=== PATIENT | female | born 1995 | race Hispanic/Latino ===

== ENCOUNTER 2022-09-09 21:14 | Emergency (ER) | payer OTHER ==
[~2022-09-09] VITALS: Ht 170.2 cm; Wt 50.8 kg
[2022-09-09] MEDS ORDERED: ONDANSETRON HCL INJ 2MG/ML 2ML 2 MG/ML VIAL IV STA (21:22)
[2022-09-09 21:34] LABS: BASOPHILS % 0.2 % (0.0-1.0); EOSINOPHILS # (AUTO) 0.1 (0.0-0.4); EOSINOPHILS % 0.6 % (0.0-6.0); HEMATOCRIT 36.5 % (34.2-44.1); HEMOGLOBIN 12.7 g/dL (12.0-16.0); MEAN CORPUSCULAR HEMOGLOBIN 31.3 pg (28-32); MEAN CORPUSCULAR HGB CONC 34.8 g/dL (31-35); MEAN CORPUSCULAR VOLUME 89.9 fL (81-99); MONOCYTES # (AUTO) 0.6 (0.2-0.8); MONOCYTES % 6.4 % (4.4-11.3); NEUTROPHILS # (AUTO) 7.2 (2.1-6.9); NEUTROPHILS % 72.6 % (38.7-80.0); PLATELET COUNT 214 x10e3/uL (140-360); RED BLOOD COUNT 4.06 x10e6/uL (3.6-5.1); RED CELL DISTRIBUTION WIDTH 12.1 % (11.7-14.4)
[2022-09-09 22:02] LABS: CLARITY,URINE CLOUDY (CLEAR); COLOR,URINE YELLOW (YELLOW); KETONES,URINE NEGATIVE (NEGATIVE); LEUKOCYTE ESTERASE ,URINE 1+ (NEGATIVE); NITRITE,URINE NEGATIVE (NEGATIVE); PROTEIN,URINE DIPSTICK TRACE (NEGATIVE); URINE UROBILINOGEN 0.2 mg/dL (0.2 - 1)
[2022-09-09 22:06] LABS: ALBUMIN/GLOBULIN RATIO 1.2 (0.8-2.0); ANION GAP 13.4 mmol/L (8-16); CALCIUM 8.9 mg/dL (8.4-10.2); CREATININE, SERUM 0.82 mg/dL (0.57-1.11); POTASSIUM 3.4 mmol/L (3.5-5.1)
[2022-09-09] MEDS ORDERED: KETOROLAC TROMETHAMINE 30 MG/ML VIAL IV STA (22:07)
[2022-09-09] MEDS ORDERED: KETOROLAC TROMETHAMINE 30 MG/ML VIAL ONE (22:13)
[2022-09-09 22:16] LABS: WBC,URINE (MAN) >50 /HPF (0-5)
[2022-09-09 22:17] LABS: BACTERIA,URINE MANY /HPF; EPITHELIAL CELLS,URINE MODERATE /LPF; RBC,URINE 21-50 /HPF (0-5); RENAL EPITHELIAL CELLS,URINE FEW
[2022-09-09] MEDS ORDERED: IOPAMIDOL 370 MG/ML 100 ML INFUS..BTL INJ ONE (22:18)
[2022-09-09] MEDS ORDERED: CEFTRIAXONE 1 GM VIAL ONE (22:57)
[2022-09-09] MEDS ORDERED: ONDANSETRON ODT4 MG SL (23:02)
[2022-09-09] MEDS ORDERED: PYRIDIUM200 MG PO (23:02)
[2022-09-09] MEDS ORDERED: CEFDINIR300 MG PO (23:02)
[2022-09-09 23:39] VITALS: BP 110/70; PULSE 66; RESP 18; TEMP 97.8; O2SAT 100
== END 2022-09-09 23:40 | disposition home or self-care (01) ==
LOC: ER 21:20
DX: N30.90 Cystitis, unspecified without hematuria (principal); N83.202 Unspecified ovarian cyst, left side; Z88.0 Allergy status to penicillin
CPT/HCPCS: 36415; 74177; 80053; 81001; 81025; 83690; 85025; 99284; J0696; J1885; J2405; Q9967

== ENCOUNTER 2023-01-04 19:35 | Emergency (ER) | payer OTHER ==
[~2023-01-04] VITALS: Ht 170.2 cm; Wt 49.9 kg
[~2023-01-04 19:35] MED LIST: CEFDINIR300 MG PO; ONDANSETRON ODT4 MG PO; ONDANSETRON ODT4 MG SL; PROZAC20 MG PO; PYRIDIUM200 MG PO
[2023-01-04 20:02] VITALS: O2SAT 99
[2023-01-04] MEDS ORDERED: THERAFLU NIGHT1 EAC5 PO (20:32)
[2023-01-04] MEDS ORDERED: PREDNISONE50 MG PO (20:32)
[2023-01-04] MEDS ORDERED: NASACORT16.9 ML (20:32)
[2023-01-04] MEDS ORDERED: IBUPROFEN200 MG PO (20:32)
== END 2023-01-04 21:05 | disposition home or self-care (01) ==
LOC: FSED 19:47
DX: R51.9 Headache, unspecified (principal); J06.9 Acute upper respiratory infection, unspecified; B34.9 Viral infection, unspecified; J30.9 Allergic rhinitis, unspecified; Z20.822 Contact with and (suspected) exposure to COVID-19
CPT/HCPCS: 0223U; 83518; 87400; 99283

== ENCOUNTER 2024-11-21 14:01 | Emergency (ER) | payer OTHER ==
[~2024-11-21] VITALS: Ht 170.2 cm; Wt 46.8 kg
[~2024-11-21 14:01] MED LIST changes: +IBUPROFEN200 MG PO; +IBUPROFEN600 MG PO; +NASACORT16.9 ML; +PREDNISONE50 MG PO; +THERAFLU NIGHT1 EAC5 PO
[2024-11-21] MEDS: SODIUM CHLORIDE 0.9% 1000ML 1,000 ML IV ONE (15:04)
[2024-11-21] MEDS ORDERED: PROMETHAZINE12.5 M1 PO (16:57)
[2024-11-21] MEDS: PROMETHAZINE HCL (IM) 25 MG/ML VIAL IM ONE (17:08)
[2024-11-21 17:27] VITALS: PULSE 58; RESP 16; TEMP 98; O2SAT 100
== END 2024-11-21 17:34 | disposition home or self-care (01) ==
LOC: FSED 14:07
DX: O26.891 Other specified pregnancy related conditions, first trimester (principal); O21.0 Mild hyperemesis gravidarum; O34.81 Maternal care for other abnormalities of pelvic organs, first trimester; N83.201 Unspecified ovarian cyst, right side; R10.33 Periumbilical pain; F41.9 Anxiety disorder, unspecified; F32.A Depression, unspecified
CPT/HCPCS: 36415; 76801; 76830; 80053; 81003; 81025; 84702; 85025; 96372; 99284; J2550; J7030